=== PATIENT | female | born 1985 | race Two or more races ===

== ENCOUNTER 2023-12-31 18:53 | Emergency (ER) | payer OTHER ==
[~2023-12-31] VITALS: Ht 165.1 cm; Wt 99.1 kg
[2023-12-31 20:13] VITALS: BP 121/68; PULSE 85; RESP 20; TEMP 98.1; O2SAT 98
[2023-12-31] MEDS ORDERED: MUPI2OIN2 EX (22:17)
[2023-12-31] MEDS ORDERED: IBUP1TAB5 PO (22:17)
[2023-12-31] MEDS ORDERED: AUG875T PO (22:17)
[2023-12-31] MEDS: HYDROcodone-ACET 5/325MG TAB PO ONE (22:42)
[2023-12-31] MEDS: TETANUS-DIPTH-ACEL PERTUSSIS 0.5ML SYR Tdap IM ONE (22:42)
[2023-12-31] MEDS: MUPIROCIN 2% OINT 15gm or 22gm TOP ONE (22:43)
[2023-12-31] MEDS: AMOXICILLIN/CLAVUL 875 MG TAB PO ONE (22:43)
== END 2023-12-31 22:49 | disposition home or self-care (01) ==
LOC: ER 18:56
DX: S43.492A Other sprain of left shoulder joint, initial encounter (principal); S73.191A Other sprain of right hip, initial encounter; S70.11XA Contusion of right thigh, initial encounter; W54.1XXA Struck by dog, initial encounter; Y93.89 Activity, other specified; Y92.89 Other specified places as the place of occurrence of the external cause; Y99.8 Other external cause status
CPT/HCPCS: 72170; 73030; 90471; 90715